=== PATIENT | male | born 2000 | race Caucasian/White ===

== ENCOUNTER 2019-01-17 07:09 | Inpatient (IN) | payer BC ==
[2019-01-17] MEDS ORDERED: SODIUM CHLORIDE 1,000 ML IV STA ×2 (07:15→07:42)
[2019-01-17] MEDS ORDERED: ONDANSETRON 4 MG/2 ML VIAL IVPUSH ONE (07:16)
--- NOTE | 2019-01-17 07:16 | PDOC ---
History of Present Illness - General Chief Complaint: Blood Sugar Problem Stated Complaint: HYPERGLYCEMIA Time Seen by Provider: 01/17/19 07:13 - History of Present Illness Initial Comments: 01/17/19 08:07 18-year-old transgender female with a history of type 1 diabetes (diagnosed at age 1, on insulin pump), currently transitioning from male to female (on estradiol and spironolactone hormone therapy for 2 years) presents to the emergency department with elevated blood sugars at home and concern for diabetic ketoacidosis. Patient reports she has a very high basal rate, and regularly receives between 60 and 70 units of regular insulin per day. She reports that she noticed at about 6 PM yesterday her insulin pump was leaking insulin around the tubing for an unknown period of time. She attempted to cover her blood sugar at the time with regular insulin subcutaneously, but it was too late as she was already vomiting. She reports innumerable episodes of nonbloody nonbilious emesis since 6 PM yesterday. She feels very dehydrated. She denies any recent fevers or chills. She reports a non productive cough for 5 weeks that has been improving. This morning she checked her urine ketones at home and found them to be elevated trace to moderate, prompting her to come to the emergency department for further evaluation. Has had DKA twice before, as freshman in high school and at diagnosis. Otherwise, denies headache, dizziness , focal weakness or numbness, chest pain, shortness of breath, abdominal pain, diarrhea, lower extremity edema, urinary symptoms or rashes. Of note, pt's family (aunt) at the bedside currently unaware that pt is transitioning from male to female. Social: previous smoker, vaper, quit 3 mo ago. Denies drug use. Lives in [place] but is currently visiting family in [place] PMD: out of state Past History - Past Medical History Allergies/Adverse Reactions: Allergies Allergy/AdvReac Type Severity Reaction Status Date / Time No Known Allergies Allergy Verified 01/17/19 07:11 Home Medications: Ambulatory Orders Estradiol 0.1 mg .ROUTE DAILY 01/17/19 Insulin Aspart [Novolog] 1 dose SQ ASDIR 01/17/19 Insulin Glargine,Hum.rec.anlog [Lantus] 1 dose SQ ASDIR 01/17/19 Spironolactone 100 mg PO DAILY 01/17/19 Review of Systems - Review of Systems Comments:: 01/17/19 08:26 GENERAL/CONSTITUTIONAL: No fever or chills. No weakness. HEAD, EYES, EARS, NOSE AND THROAT: No change in vision. No ear pain or discharge. No sore throat. GASTROINTESTINAL: +nausea, vomiting, no diarrhea or constipation. GENITOURINARY: No dysuria, frequency, or change in urination. CARDIOVASCULAR: No chest pain or shortness of breath. RESPIRATORY: +cough, no wheezing, or hemoptysis. MUSCULOSKELETAL: No joint or muscle swelling or pain. No neck or back pain. SKIN: No rash NEUROLOGIC: No headache, vertigo, loss of consciousness, or change in strength/ sensation. ENDOCRINE: No increased thirst. No abnormal weight change. HEMATOLOGIC/LYMPHATIC: No anemia, easy bleeding, or history of blood clots. ALLERGIC/IMMUNOLOGIC: No hives or skin allergy. *Physical Exam - Physical Exam Comments: 01/17/19 08:28 GENERAL: Awake, alert, and fully oriented, in no acute distress EYES: PERRLA, EOMI, sclera anicteric, conjunctiva clear ENT: Oropharynx clear without exudates. Dry MM NECK: Normal ROM, supple, no lymphadenopathy, JVD, or masses LUNGS: Breath sounds equal, clear to auscultation bilaterally. No wheezes, and no crackles HEART: Tachycardic to 120s but regular, normal S1 and S2, no murmurs, rubs or gallops ABDOMEN: Soft, nontender, normoactive bowel sounds. No guarding, no rebound. No masses EXTREMITIES: Normal range of motion, no edema. No cords, erythema, or tenderness NEUROLOGICAL: Normal speech, cranial nerves intact, equal strength and sensation b/l SKIN: Warm, Dry, normal turgor, no rashes or lesions noted. Heart Score/ECG Review #1 01/17/19 08:32 Twelve-lead EKG was performed and reviewed by me. Sinus tachycardia, rate 122. Normal axis and intervals. No ST elevations or T wave inversions. ED Treatment Course - LABORATORY CBC & Chemistry Diagram: 01/17/19 07:58 01/17/19 07:58 - RADIOLOGY Radiology Studies Ordered: Category Date Time Status CHEST PA & LAT [RAD] Stat Radiology 01/17/19 07:14 Ordered Medical Decision Making - Critical Care Time Total Critical Care Time (minutes): 60 Critical Care Statement: The care of this patient involved high complexity decision making to prevent further life threatening deterioration of the patient 's condition and/or to evaluate & treat vital organ system(s) failure or risk of failure. - Medical Decision Making 01/17/19 08:00 18-year-old transgender female, type I diabetic presents the emergency department with elevated blood sugars at home after insulin pump malfunction. Patient appears dehydrated. Differential includes hyperglycemia versus diabetic ketoacidosis. Ordered for 2 L of normal saline while labs are pending. Unlikely infectious as patient has no fevers or chills, but will do infectious w/u. Has had a cough for 5 weeks but this has been improving. Otherwise denies infectious symptoms. 01/17/19 08:43 Patient with leukocytosis to 30, with left shift. Patient was covered empirically with Vanc/Zosyn. Blood cultures ordered. CXR thus far clear. UA pending. Blood sugar elevated to 540 with gap of 20 consistent with diabetic ketoacidosis. Potassium was 5.1. Mg/Phos wnl. As such insulin drip ordered, also ordered liter #3 of NS with 20 mEq of KCl to run at 250 cc/h. Remaining labs are pending, anticipate admission to ICU down at [facility]. 01/17/19 10:32 Pt admitted to [facility]/Dr. Daily Accepted to ICU by Dr. Suraj Knapp/Fahad Pt to be transferred down to [facility] ICU Case discussed in detail with admitting physician including history, physical exam and ancillary studies. Admitting physician has assumed care for the patient, will follow all pending diagnostics and will complete the evaluation and treatment. Discharge - Discharge Information Problems reviewed: Yes Clinical Impression/Diagnosis: DKA, type 1, Sepsis, Dehydration Condition: Stable - Follow up/Referral - Patient Discharge Instructions - Post Discharge Activity
[2019-01-17] MEDS ORDERED: ONDANSETRON 4 MG/2 ML VIAL ONE (07:59)
[2019-01-17 08:28] LABS: HEMATOCRIT 43.3 % (35.4-49); MEAN PLT VOLUME 10.6 fl (7.5-11.1); WHITE BLOOD COUNT 29.5 K/mm3 (4.0-10.8)
[2019-01-17 08:30] LABS: ALBUMIN 4.5 g/dl (3.4-5.0); BILIRUBIN,TOTAL 1.4 mg/dl (0.2-1); CREATININE 1.3 mg/dl (0.55-1.3); MAGNESIUM 1.8 mg/dL (1.8-2.4); POTASSIUM 5.1 mmol/L (3.5-5.1); TOT PROT 8.1 g/dl (6.4-8.2)
[2019-01-17 08:32] LABS: HEMOGLOBIN 14.4 GM/dl (11.7-16.9); MCH 29.9 pg (25.7-33.7); MCHC 33.3 g/dl (32.0-35.9); MEAN CELL VOLUME 89.6 fl (80-96); PLATELET COUNT 400 K/MM3 (134-434); RBC 4.82 M/mm3 (4.00-5.60); RDW 11.9 % (11.9-15.9)
[2019-01-17] MEDS ORDERED: VANCOMYCIN 1,000 MG in DEXTROSE 5%-WATER - 250 ML IVPB ONE (08:40)
[2019-01-17] MEDS ORDERED: PIPERACILLIN/TAZOB 4.5 GM 4.5 GM in DEXTROSE 5%-WATER - 100 ML IVPB ONE (08:40)
[2019-01-17] MEDS ORDERED: INSULIN REGULAR 100 UNITS in SODIUM CHLORIDE 99 ML IVPB SCH ×3 (08:45→14:45)
[2019-01-17] MEDS ORDERED: SODIUM CHLORIDE 0.9%/KCL 20 MEQ/1,000 ML INFUS.BAG IV SCH (08:45)
[2019-01-17] MEDS ORDERED: INSULIN (NOVOLOG) ASPART 100 UNITS/ML 10ML VIAL ONE (08:49)
[2019-01-17] MEDS ORDERED: VANCOMYCIN 1,000 MG VIAL (RESTRICTED TO ID ONLY) ONE (08:50)
[2019-01-17] MEDS ORDERED: PIPERACILLIN/TAZOBACTAM 4.5 GM VIAL IVPB ONE (08:50)
[2019-01-17 09:00] LABS: VENOUS PC02 30.9 mmHg (38-52); VENOUS PH 7.21 (7.31-7.41); VENOUS PO2 76.4 mmHg (28-48)
[2019-01-17 09:20] LABS: PHOSPHOROUS 4.9 mg/dL (2.5-4.9)
[2019-01-17] MEDS ORDERED: PATIENT'S OWN MEDICATION (NON-FORMULARY) (Spironolactone [Spironolactone] 100 MG) PO SCH (10:00)
[2019-01-17] MEDS ORDERED: ESTRADIOL 0.1 MG SCH (10:00)
--- NOTE | 2019-01-17 10:54 | EKG ---
Test Reason : Blood Pressure : / mmHG Vent. Rate : 122 BPM Atrial Rate : 122 BPM P-R Int : 140 ms QRS Dur : 088 ms QT Int : 324 ms P-R-T Axes : 058 049 034 degrees QTc Int : 461 ms SINUS TACHYCARDIA POSSIBLE LEFT ATRIAL ENLARGEMENT BORDERLINE ECG NO PREVIOUS ECGS AVAILABLE Confirmed by DARSHAN GARCIA, EVANGELINA ([id number]) on 01/17/2019 10:53:35 AM Referred By: MAYITO Confirmed By:EVANGELINA SEXTON MD
--- NOTE | 2019-01-17 11:46 | HP ---
CHIEF COMPLAINT: DKA PCP: Dr. Cameron Good, [facility] [email or web address] HISTORY OF PRESENT ILLNESS: 18 year-old transgender female with a history of Type 1 diabetes (diagnosed at age 1, on insulin pump), currently transitioning from male to female (on estradiol and spironolactone hormone therapy for 2 years) presents to the emergency department with elevated blood sugars at home and concern for diabetic ketoacidosis. Patient reports she has a very high basal rate, and regularly receives between 60 and 70 units of regular insulin per day. She reports that she noticed at about 6 PM yesterday her insulin pump was leaking insulin around the tubing for an unknown period of time. She attempted to cover her blood sugar at the time with regular insulin subcutaneously, but it was too late as she was already vomiting. She reports innumerable episodes of nonbloody nonbilious emesis since 6 PM yesterday. She feels very dehydrated. She denies any recent fevers or chills. She reports a non productive cough for 5 weeks that has been improving. This morning she checked her urine ketones at home and found them to be elevated trace to moderate, prompting her to come to the emergency department for further evaluation. Has had DKA twice before, as freshman in high school and at diagnosis. Otherwise, denies headache, dizziness , focal weakness or numbness, chest pain, shortness of breath, abdominal pain, diarrhea, lower extremity edema, urinary symptoms or rashes. Of note, pt's family (aunt) at the bedside unaware that pt is transitioning from male to female. ER course was notable for: (1) WBC 29.5, Glucose 541, lactic acid 4.3, anion gap 20 (2) beta hydroxybutyrate 59.4 (3) 4+ urine ketones Recent Travel: From [place] PAST MEDICAL HISTORY: Type I diabetes Gender transitioning PAST SURGICAL HISTORY: None reported Social History: lives in [place], visiting family in [place]; just graduated from [employer] Smoking: previous smoker, vaper, quit 3 months ago Alcohol: no Drugs: no Family history: Mother age 50 autoimmune disorder; father age 50 heart disease NOS; no biological siblings Allergies No Known Allergies Allergy (Verified 01/17/19 07:11) HOME MEDICATIONS: Home Medications Medication Instructions Recorded Estradiol 0.1 mg .ROUTE DAILY 01/17/19 Insulin Aspart [Novolog] 1 dose SQ ASDIR 01/17/19 Insulin Glargine,Hum.rec.anlog 1 dose SQ ASDIR 01/17/19 [Lantus] Spironolactone 100 mg PO DAILY 01/17/19 REVIEW OF SYSTEMS CONSTITUTIONAL: Absent: fever, chills, diaphoresis, generalized weakness, malaise, loss of appetite, weight change HEENT: Absent: rhinorrhea, nasal congestion, throat pain, throat swelling, difficulty swallowing, mouth swelling, ear pain, eye pain, visual changes CARDIOVASCULAR: Absent: chest pain, syncope, palpitations, irregular heart rate, lightheadedness , peripheral edema RESPIRATORY: Absent: cough, shortness of breath, dyspnea with exertion, orthopnea, wheezing, stridor, hemoptysis GASTROINTESTINAL: Absent: abdominal pain, abdominal distension, nausea, vomiting, diarrhea, constipation, melena, hematochezia GENITOURINARY: Absent: dysuria, frequency, urgency, hesitancy, hematuria, flank pain, genital pain MUSCULOSKELETAL: Absent: myalgia, arthralgia, joint swelling, back pain, neck pain SKIN: Absent: rash, itching, pallor HEMATOLOGIC/IMMUNOLOGIC: Absent: easy bleeding, easy bruising, lymphadenopathy, frequent infections ENDOCRINE: vomiting, malaise, thirst Absent: unexplained weight gain, unexplained weight loss, heat intolerance, cold intolerance NEUROLOGIC: Absent: headache, focal weakness or paresthesias, dizziness, unsteady gait, seizure, mental status changes, bladder or bowel incontinence PSYCHIATRIC: Absent: anxiety, depression, suicidal or homicidal ideation, hallucinations. PHYSICAL EXAMINATION Vital Signs - 24 hr 01/17/19 01/17/19 01/17/19 07:10 09:44 09:47 Temperature 97.8 F 97.8 F 98.8 F Pulse Rate 123 H Pulse Rate [ 125 H 121 H Left] Respiratory 20 20 20 Rate Blood Pressure 124/72 Blood Pressure 100/53 L 104/53 L [Right Arm] O2 Sat by Pulse 99 99 100 Oximetry (%) 01/17/19 11:42 Temperature 98.8 F Pulse Rate Pulse Rate [ 122 H Left] Respiratory 20 Rate Blood Pressure Blood Pressure 109/50 L [Right Arm] O2 Sat by Pulse 100 Oximetry (%) GENERAL: Awake, alert, and fully oriented, in no acute distress. HEAD: Normal with no signs of trauma. EYES: Pupils equal, round and reactive to light, extraocular movements intact, sclera anicteric, conjunctiva clear. No lid lag. EARS, NOSE, THROAT: Ears normal, nares patent, oropharynx clear without exudates. Moist mucous membranes. NECK: Normal range of motion, supple without lymphadenopathy, JVD, or masses. LUNGS: Breath sounds equal, clear to auscultation bilaterally. No wheezes, and no crackles. No accessory muscle use. HEART: Regular rate and rhythm, normal S1 and S2 without murmur, rub or gallop. ABDOMEN: Soft, nontender, not distended, normoactive bowel sounds, no guarding, no rebound, no masses. No hepatomegaly or splenomegaly. MUSCULOSKELETAL: Normal range of motion at all joints. No bony deformities or tenderness. No CVA tenderness. UPPER EXTREMITIES: 2+ pulses, warm, well-perfused. No cyanosis. No clubbing. No peripheral edema. LOWER EXTREMITIES: 2+ pulses, warm, well-perfused. No calf tenderness. No peripheral edema. NEUROLOGICAL: Cranial nerves II-XII intact. Normal speech. Normal gait. PSYCHIATRIC: Cooperative. Good eye contact. Appropriate mood and affect. SKIN: Warm, dry, normal turgor; insulin pump site lateral right thigh without s/ s of infection Laboratory Results - last 24 hr 01/17/19 01/17/19 01/17/19 07:50 07:50 07:58 WBC 29.5 H RBC 4.82 Hgb 14.4 Hct 43.3 MCV 89.6 MCH 29.9 MCHC 33.3 RDW 11.9 Plt Count 400 MPV 10.6 Absolute Neuts (auto) 26.8 Neutrophils % No Result Required. Neutrophils % (Manual) 90.0 H Lymphocytes % No Result Required. Lymphocytes % (Manual) 6.0 L Monocytes % (Manual) 3 L Eosinophils % (Manual) 1.0 VBG pH 7.21 L POC VBG pCO2 30.9 L POC VBG pO2 76.4 H VBG HCO3 11.9 L VBG O2 Sat (Phuong) 92.9 H VBG Base Excess -14.8 L Sodium Potassium Chloride Carbon Dioxide Anion Gap BUN Creatinine Est GFR (CKD-EPI)AfAm Est GFR (CKD-EPI)NonAf POC Glucometer Random Glucose Lactic Acid 4.3 H* Calcium Phosphorus Magnesium Total Bilirubin AST ALT Alkaline Phosphatase Total Protein Albumin Lipase Beta-Hydroxybutyrate Urine Color Urine Appearance Urine pH Urine Protein Urine Glucose (UA) Urine Ketones Urine Blood Urine Nitrite Urine Bilirubin Urine Urobilinogen Ur Leukocyte Esterase 01/17/19 01/17/19 01/17/19 07:58 07:58 07:58 WBC RBC Hgb Hct MCV MCH MCHC RDW Plt Count MPV Absolute Neuts (auto) Neutrophils % Neutrophils % (Manual) Lymphocytes % Lymphocytes % (Manual) Monocytes % (Manual) Eosinophils % (Manual) VBG pH POC VBG pCO2 POC VBG pO2 VBG HCO3 VBG O2 Sat (Phuong) VBG Base Excess Sodium 130 L Potassium 5.1 Chloride 98 Carbon Dioxide 12 L Anion Gap 20 H BUN 26.0 H Creatinine 1.3 Est GFR (CKD-EPI)AfAm 91.03 Est GFR (CKD-EPI)NonAf 78.55 POC Glucometer Random Glucose 541 H* Lactic Acid Calcium 10.0 Phosphorus 5.0 H 4.9 Magnesium 1.8 Cancelled Total Bilirubin 1.4 H AST 19 ALT 14 Alkaline Phosphatase 107 Total Protein 8.1 Albumin 4.5 Lipase 727 H Beta-Hydroxybutyrate Cancelled 59.4 H Urine Color Urine Appearance Urine pH Urine Protein Urine Glucose (UA) Urine Ketones Urine Blood Urine Nitrite Urine Bilirubin Urine Urobilinogen Ur Leukocyte Esterase 01/17/19 01/17/19 10:51 11:35 WBC RBC Hgb Hct MCV MCH MCHC RDW Plt Count MPV Absolute Neuts (auto) Neutrophils % Neutrophils % (Manual) Lymphocytes % Lymphocytes % (Manual) Monocytes % (Manual) Eosinophils % (Manual) VBG pH POC VBG pCO2 POC VBG pO2 VBG HCO3 VBG O2 Sat (Phuong) VBG Base Excess Sodium Potassium Chloride Carbon Dioxide Anion Gap BUN Creatinine Est GFR (CKD-EPI)AfAm Est GFR (CKD-EPI)NonAf POC Glucometer 301 Random Glucose Lactic Acid Calcium Phosphorus Magnesium Total Bilirubin AST ALT Alkaline Phosphatase Total Protein Albumin Lipase Beta-Hydroxybutyrate Urine Color Yellow Urine Appearance Clear Urine pH 5.0 Urine Protein Negative Urine Glucose (UA) 1+ Urine Ketones 4+ H Urine Blood Trace-intact Urine Nitrite Negative Urine Bilirubin Negative Urine Urobilinogen 0.2 Ur Leukocyte Esterase Negative ASSESSMENT/PLAN 18 year-old transgender female with a history of Type 1 diabetes (diagnosed at age 1, on insulin pump), currently transitioning from male to female, admitted for DKA after insulin pump malfunctioned. DKA --on insulin drip --NS+20K @ 250mL/hr running --cbc, cmp, Mg, lactic acid repeat at noon --transfer to ICU DVT prophylaxis: subq heparin Visit type - Emergency Visit Emergency Visit: Yes ED Registration Date: 01/17/19 Care time: The patient presented to the Emergency Department on the above date and was hospitalized for further evaluation of their emergent condition. - New Patient This patient is new to me today: Yes Date on this admission: 01/17/19 - Critical Care Critical Care patient: Yes Total Critical Care Time (in minutes): 45 Critical Care Statement: The care of this patient involved high complexity decision making to prevent further life threatening deterioration of the patient 's condition and/or to evaluate & treat vital organ system(s) failure or risk of failure.
[2019-01-17 11:58] LABS: EPITHELIAL CELLS FEW /hpf
[2019-01-17] MEDS: MUPIROCIN 2% TOPICAL OINTMENT FOR DECOLONIZATION NS SCH ×2 (12:45→23:04)
--- NOTE | 2019-01-17 13:07 | CONSULT ---
Consultation: REQUESTING PROVIDER: CONSULT REQUEST: ICU HISTORY OF PRESENT ILLNESS: 18 year-old transgender F w PMHx T1DM (on insulin pump), transitioning from [facility] (estradiol and spironolactone) presenting to [facility] with hyperglycemia. At 6p yesterday, noted insulin pump was leaking around insertion site for unknown period of time despite swapping parts. Subsequent non-bilious vomiting x6 overnight. Has non productive cough x5wks. Denies fever/chills, SOB, chest/AB pain, urinary/bowel movement changes. Pt's family (aunt) unaware that pt is transitioning from male to female. Pt requests to be called Delfin when alone and Edilberto when family in room. In the ED, WBC 29.5, BG 541, lactic acid 4.3, pH 7.21, anion gap 20, beta hydroxybutyrate 59.4 Started insulin drip, given 3L NS (last L w 20mEQ KCl), vanc/zosyn, zofran REVIEW OF SYSTEMS: CONSTITUTIONAL: Absent: fever, chills, diaphoresis, generalized weakness HEENT: Absent: rhinorrhea, nasal congestion, throat pain, ear pain, eye pain, visual changes CARDIOVASCULAR: Absent: chest pain, syncope, palpitations RESPIRATORY: + cough Absent: shortness of breath, wheezing, stridor, hemoptysis GASTROINTESTINAL: +nausea/vomiting Absent: abdominal pain, abdominal distension, diarrhea, constipation GENITOURINARY: Absent: dysuria, frequency, urgency, hesitancy MUSCULOSKELETAL: Absent: myalgia, arthralgia, back pain SKIN: Absent: rash, itching HEMATOLOGIC/IMMUNOLOGIC: Absent: easy bleeding, easy bruising ENDOCRINE: Absent: heat intolerance, cold intolerance NEUROLOGIC: Absent: headache, focal weakness or paresthesias, dizziness, seizure PSYCHIATRIC: Absent: anxiety, depression PHYSICAL EXAMINATION Vital Signs - 24 hr 01/17/19 01/17/19 01/17/19 07:10 09:44 09:47 Temperature 97.8 F 97.8 F 98.8 F Pulse Rate 123 H Pulse Rate [ 125 H 121 H Left] Respiratory 20 20 20 Rate Blood Pressure 124/72 Blood Pressure 100/53 L 104/53 L [Right Arm] O2 Sat by Pulse 99 99 100 Oximetry (%) 01/17/19 11:42 Temperature 98.8 F Pulse Rate Pulse Rate [ 122 H Left] Respiratory 20 Rate Blood Pressure Blood Pressure 109/50 L [Right Arm] O2 Sat by Pulse 100 Oximetry (%) GENERAL: Awake, alert, and fully oriented, in no acute distress. HEAD: Normal with no signs of trauma. LUNGS: Breath sounds equal, clear to auscultation bilaterally. No wheezes, and no crackles. No accessory muscle use. HEART: Regular rate and rhythm, normal S1 and S2 without murmur, rub or gallop. ABDOMEN: Soft, nontender, not distended, normoactive bowel sounds, no guarding, no rebound, no masses. No hepatomegaly or splenomegaly. EXTREMITIES: warm, well-perfused. Cap refill <2 seconds. No peripheral edema. NEUROLOGICAL: AOx3. Normal speech. Laboratory Results - last 24 hr 01/17/19 01/17/19 01/17/19 07:50 07:50 07:58 WBC 29.5 H RBC 4.82 Hgb 14.4 Hct 43.3 MCV 89.6 MCH 29.9 MCHC 33.3 RDW 11.9 Plt Count 400 MPV 10.6 Absolute Neuts (auto) 26.8 Neutrophils % No Result Required. Neutrophils % (Manual) 90.0 H Lymphocytes % No Result Required. Lymphocytes % (Manual) 6.0 L Monocytes % (Manual) 3 L Eosinophils % (Manual) 1.0 VBG pH 7.21 L POC VBG pCO2 30.9 L POC VBG pO2 76.4 H VBG HCO3 11.9 L VBG O2 Sat (Phuong) 92.9 H VBG Base Excess -14.8 L Sodium Potassium Chloride Carbon Dioxide Anion Gap BUN Creatinine Est GFR (CKD-EPI)AfAm Est GFR (CKD-EPI)NonAf POC Glucometer Random Glucose Lactic Acid 4.3 H* Calcium Phosphorus Magnesium Total Bilirubin AST ALT Alkaline Phosphatase Total Protein Albumin Lipase Beta-Hydroxybutyrate Urine Color Urine Appearance Urine pH Urine Protein Urine Glucose (UA) Urine Ketones Urine Blood Urine Nitrite Urine Bilirubin Urine Urobilinogen Ur Leukocyte Esterase Urine RBC Urine WBC Ur Transition Epith Cell 01/17/19 01/17/19 01/17/19 07:58 07:58 07:58 WBC RBC Hgb Hct MCV MCH MCHC RDW Plt Count MPV Absolute Neuts (auto) Neutrophils % Neutrophils % (Manual) Lymphocytes % Lymphocytes % (Manual) Monocytes % (Manual) Eosinophils % (Manual) VBG pH POC VBG pCO2 POC VBG pO2 VBG HCO3 VBG O2 Sat (Phuong) VBG Base Excess Sodium 130 L Potassium 5.1 Chloride 98 Carbon Dioxide 12 L Anion Gap 20 H BUN 26.0 H Creatinine 1.3 Est GFR (CKD-EPI)AfAm 91.03 Est GFR (CKD-EPI)NonAf 78.55 POC Glucometer Random Glucose 541 H* Lactic Acid Calcium 10.0 Phosphorus 5.0 H 4.9 Magnesium 1.8 Cancelled Total Bilirubin 1.4 H AST 19 ALT 14 Alkaline Phosphatase 107 Total Protein 8.1 Albumin 4.5 Lipase 727 H Beta-Hydroxybutyrate Cancelled 59.4 H Urine Color Urine Appearance Urine pH Urine Protein Urine Glucose (UA) Urine Ketones Urine Blood Urine Nitrite Urine Bilirubin Urine Urobilinogen Ur Leukocyte Esterase Urine RBC Urine WBC Ur Transition Epith Cell 01/17/19 01/17/19 01/17/19 10:51 11:35 12:49 WBC RBC Hgb Hct MCV MCH MCHC RDW Plt Count MPV Absolute Neuts (auto) Neutrophils % Neutrophils % (Manual) Lymphocytes % Lymphocytes % (Manual) Monocytes % (Manual) Eosinophils % (Manual) VBG pH POC VBG pCO2 POC VBG pO2 VBG HCO3 VBG O2 Sat (Phuong) VBG Base Excess Sodium Potassium Chloride Carbon Dioxide Anion Gap BUN Creatinine Est GFR (CKD-EPI)AfAm Est GFR (CKD-EPI)NonAf POC Glucometer 301 198 Random Glucose Lactic Acid Calcium Phosphorus Magnesium Total Bilirubin AST ALT Alkaline Phosphatase Total Protein Albumin Lipase Beta-Hydroxybutyrate Urine Color Yellow Urine Appearance Clear Urine pH 5.0 Urine Protein Negative Urine Glucose (UA) 1+ Urine Ketones 4+ H Urine Blood Trace-intact Urine Nitrite Negative Urine Bilirubin Negative Urine Urobilinogen 0.2 Ur Leukocyte Esterase Negative Urine RBC 2-5 Urine WBC 0-2 Ur Transition Epith Cell Few Active Medications Generic Name Dose Route Start Last Admin Trade Name Freq PRN Reason Stop Dose Admin Chlorhexidine Gluconate 1 applic 01/17/19 22:00 Hibiclens For Decolonization - TP HS KEVIN Heparin Sodium (Porcine) 5,000 unit 01/17/19 14:00 Heparin - SQ TID KEVIN Potassium Chloride/Sodium Chloride 20 meq in 1,000 mls @ 250 mls/hr 01/17/19 08:45 01/17/19 08:50 Ns+20 Meq Kcl - IV 250 mls/hr ASDIR KEVIN Administration Insulin Human Regular 100 100 mls @ 7.71 mls/hr 01/17/19 08:45 01/17/19 09:20 units/ Sodium Chloride IVPB 0.1 units/kg/hr TITR KEVIN 7.71 mls/hr Administration Protocol 0.1 UNITS/KG/HR Mupirocin 1 applic 01/17/19 10:00 Bactroban Ointment (For Decolonization) - NS 01/22/19 09:59 BID KEVIN ASSESSMENT/PLAN: 18 year-old transgender F w PMHx T1DM (on insulin pump), transitioning from [facility] (estradiol and spironolactone) transferred from [facility] for DKA. Endo - DKA, hx T1DM, gender transition - transitioned insulin drip to ISS, BGM after gap closed - holding spironolactone while pressures labile - appreciated endo recs Cards - DVT ppx Pulm - CXR 01/18 shows clear lungs Heme - no active issues GI - diabetic diet - no evidence of UTI - stopped fluids - I/O ID - leukocytosis WBC 29 likely d/t stress - given vanc/zosyn in ED - pending blood/urine cx PPX - heparin - no GI ppx FEN - no fluids - hypoNa - diabetic diet Dispo: ICU Visit type - Emergency Visit Emergency Visit: Yes ED Registration Date: 01/17/19 Care time: The patient presented to the Emergency Department on the above date and was hospitalized for further evaluation of their emergent condition. - New Patient This patient is new to me today: Yes Date on this admission: 01/17/19 - Critical Care Critical Care patient: Yes Total Critical Care Time (in minutes): 37 Critical Care Statement: The care of this patient involved high complexity decision making to prevent further life threatening deterioration of the patient 's condition and/or to evaluate & treat vital organ system(s) failure or risk of failure. ATTENDING PHYSICIAN STATEMENT I saw and evaluated the patient. I reviewed the resident's note and discussed the case with the resident. I agree with the resident's findings and plan as documented. SUBJECTIVE: OBJECTIVE: ASSESSMENT AND PLAN:
--- NOTE | 2019-01-17 14:00 | HOSP ---
Subjective - Review of Symptoms Subjective: Patient is a 18 y/o transgender female with a history of type 1 diabetes (on insulin pump) who is admitted to the ICU for DKA. Patient currently reports she is hungry and the pain has subsided. She has only urinated once so far. No other complaints. Physical Examination Vital Signs: Vital Signs Temperature 98.7 F 01/17/19 12:45 Pulse Rate 115 H 01/17/19 12:45 Respiratory Rate 20 01/17/19 12:45 Blood Pressure 107/56 L 01/17/19 12:45 O2 Sat by Pulse Oximetry (%) 100 01/17/19 11:42 Findings/Remarks: General: awake, alert, no acute distress Heart: RRR Lungs: CTAL Abdomen, soft, non tender, normal bowel sounds heard Extremities: no pitting edema Skin: no rashes or ecchymoses noted Labs: CBC, BMP 01/17/19 07:58 01/17/19 07:58 Hospitalist Encounter Assessment: #DKA - currently on insulin drip - monitor BMP q4h - glucose < 250, D5 @ 100 - monitor potassium closely - beta hydroxybuterate: 59.4 #gender reassingment - will hold spironolactone 100 while pressures labile - Estradiol .1 mg daily, patient currently wearing a patch that lasts her a few days - prozac 80 mg daily #DVT ppx - heaprin TID DIspo: monitor in the ICU until gap closes and sugars stable Patients family unaware of transition. prefers Luke when Family is present, goes by Delfin if patient is alone Visit type - Emergency Visit Emergency Visit: No - New Patient This patient is new to me today: Yes Date on this admission: 01/18/19 - Critical Care Critical Care patient: No
[2019-01-17] MEDS: HEPARIN NA (PORCINE) 5,000 UNITS/ML 1ML VIAL SQ SCH ×2 (14:12→23:04)
[2019-01-17] MEDS ORDERED: DEXTROSE 5%-0.45% SALINE 1,000 ML IV SCH (14:15)
[2019-01-17 15:44] LABS: BLOOD UREA NITROGEN 17.4 mg/dL (7-18); CALCIUM 8.9 mg/dL (8.5-10.1); MAGNESIUM 2.1 mg/dL (1.8-2.4); PHOSPHOROUS 1.8 mg/dL (2.5-4.9); POTASSIUM 4.5 mmol/L (3.5-5.1)
[2019-01-17] MEDS ORDERED: NAPH,MB-DB/K PH,MBDB POWDER PACKET PO ONE (18:23)
--- NOTE | 2019-01-17 20:17 | CONSULT ---
Consult Consult Specialty:: ENDOCRINE Referred by:: CHANDLER MUÑOZ RESIDENT PHYSICIAN Reason for Consultation:: DM1/DKA - History of Present Illness Chief Complaint: LABILE BLOOD SUGARS STARTED WITH VOMITING AND WEAKNESS History of Present Illness: 18 year-old transgender female with a history of Type 1 diabetes (diagnosed at age 1, on insulin pump), currently transitioning from male to female (on estradiol and spironolactone hormone therapy for 2 years) presented to the emergency department with elevated blood sugars at home noted insulin pump malfunctioning, was not able to correct the problem with injections,started feeling nauseated and vomiting several times.was unable to keep food or liquid down.denies fever chills,chest pain or cough. - Alcohol/Substance Use Hx Alcohol Use: No - Smoking History Smoking history: Never smoked Have you smoked in the past 12 months: No Home Medications - Allergies Allergies/Adverse Reactions: Allergies Allergy/AdvReac Type Severity Reaction Status Date / Time No Known Allergies Allergy Verified 01/17/19 07:11 - Home Medications Home Medications: Ambulatory Orders Estradiol 0.1 mg .ROUTE DAILY 01/17/19 Insulin Aspart [Novolog] 1 dose SQ ASDIR 01/17/19 Insulin Glargine,Hum.rec.anlog [Lantus] 1 dose SQ ASDIR 01/17/19 Spironolactone 100 mg PO DAILY 01/17/19 Review of Systems - Review of Systems Constitutional: reports: Lethargy, Weakness Eyes: reports: No Symptoms HENT: reports: No Symptoms Neck: reports: No Symptoms Cardiovascular: reports: No Symptoms Respiratory: reports: No Symptoms Gastrointestinal: reports: Bloating Genitourinary: reports: No Symptoms Neurological: reports: No Symptoms Physical Exam Vital Signs: Vital Signs Temperature 98.0 F 01/17/19 16:00 Pulse Rate 102 H 01/17/19 16:00 Respiratory Rate 14 01/17/19 16:00 Blood Pressure 96/48 L 01/17/19 16:00 O2 Sat by Pulse Oximetry (%) 100 01/17/19 11:42 Constitutional: Yes: Calm Eyes: Yes: EOM Intact HENT: Yes: Normocephalic Neck: Yes: Trachea Midline Cardiovascular: Yes: Regular Rate and Rhythm Respiratory: Yes: CTA Bilaterally Gastrointestinal: Yes: Normal Bowel Sounds ...Rectal Exam: Yes: Deferred Renal/: Yes: WNL Breast(s): Yes: WNL Musculoskeletal: Yes: WNL Extremities: Yes: WNL Edema: No Neurological: Yes: Alert, Oriented Labs: CBC, BMP 01/17/19 07:58 01/17/19 14:37 Problem List - Problems (1) DKA, type 1 Problems reviewed: Yes Code(s): E10.10 - TYPE 1 DIABETES MELLITUS WITH KETOACIDOSIS WITHOUT COMA (2) Dehydration Problems reviewed: Yes Code(s): E86.0 - DEHYDRATION (3) Sepsis Problems reviewed: Yes Code(s): A41.9 - SEPSIS, UNSPECIFIED ORGANISM Assessment/Plan Current Active Problems DKA, type 1 (Acute) Dehydration (Acute) Sepsis (Acute) Abnormal Lab Results 01/17/19 01/17/19 01/17/19 07:50 07:50 07:58 WBC 29.5 H Neutrophils % (Manual) 90.0 H Lymphocytes % (Manual) 6.0 L Monocytes % (Manual) 3 L VBG pH 7.21 L POC VBG pCO2 30.9 L POC VBG pO2 76.4 H VBG HCO3 11.9 L VBG O2 Sat (Phuong) 92.9 H VBG Base Excess -14.8 L Sodium Chloride Carbon Dioxide Anion Gap BUN Random Glucose Lactic Acid 4.3 H* Phosphorus Total Bilirubin Lipase Beta-Hydroxybutyrate Urine Ketones 01/17/19 01/17/19 01/17/19 07:58 07:58 07:58 WBC Neutrophils % (Manual) Lymphocytes % (Manual) Monocytes % (Manual) VBG pH POC VBG pCO2 POC VBG pO2 VBG HCO3 VBG O2 Sat (Phuong) VBG Base Excess Sodium 130 L Chloride Carbon Dioxide 12 L Anion Gap 20 H BUN 26.0 H Random Glucose 541 H* Lactic Acid Phosphorus 5.0 H Total Bilirubin 1.4 H Lipase 727 H Beta-Hydroxybutyrate 59.4 H Urine Ketones 01/17/19 01/17/19 11:35 14:37 WBC Neutrophils % (Manual) Lymphocytes % (Manual) Monocytes % (Manual) VBG pH POC VBG pCO2 POC VBG pO2 VBG HCO3 VBG O2 Sat (Phuong) VBG Base Excess Sodium Chloride 114 H Carbon Dioxide Anion Gap 5 L BUN Random Glucose 115 H Lactic Acid Phosphorus 1.8 L Total Bilirubin Lipase Beta-Hydroxybutyrate Urine Ketones 4+ H Laboratory Results - last 24 hr 01/17/19 01/17/19 01/17/19 07:50 07:50 07:58 WBC 29.5 H RBC 4.82 Hgb 14.4 Hct 43.3 MCV 89.6 MCH 29.9 MCHC 33.3 RDW 11.9 Plt Count 400 MPV 10.6 Absolute Neuts (auto) 26.8 Neutrophils % No Result Required. Neutrophils % (Manual) 90.0 H Lymphocytes % No Result Required. Lymphocytes % (Manual) 6.0 L Monocytes % (Manual) 3 L Eosinophils % (Manual) 1.0 VBG pH 7.21 L POC VBG pCO2 30.9 L POC VBG pO2 76.4 H VBG HCO3 11.9 L VBG O2 Sat (Phuong) 92.9 H VBG Base Excess -14.8 L Sodium Potassium Chloride Carbon Dioxide Anion Gap BUN Creatinine Est GFR (CKD-EPI)AfAm Est GFR (CKD-EPI)NonAf POC Glucometer Random Glucose Lactic Acid 4.3 H* Calcium Phosphorus Magnesium Total Bilirubin AST ALT Alkaline Phosphatase Total Protein Albumin Lipase Beta-Hydroxybutyrate Urine Color Urine Appearance Urine pH Urine Protein Urine Glucose (UA) Urine Ketones Urine Blood Urine Nitrite Urine Bilirubin Urine Urobilinogen Ur Leukocyte Esterase Urine RBC Urine WBC Ur Transition Epith Cell 01/17/19 01/17/19 01/17/19 07:58 07:58 07:58 WBC RBC Hgb Hct MCV MCH MCHC RDW Plt Count MPV Absolute Neuts (auto) Neutrophils % Neutrophils % (Manual) Lymphocytes % Lymphocytes % (Manual) Monocytes % (Manual) Eosinophils % (Manual) VBG pH POC VBG pCO2 POC VBG pO2 VBG HCO3 VBG O2 Sat (Phuong) VBG Base Excess Sodium 130 L Potassium 5.1 Chloride 98 Carbon Dioxide 12 L Anion Gap 20 H BUN 26.0 H Creatinine 1.3 Est GFR (CKD-EPI)AfAm 91.03 Est GFR (CKD-EPI)NonAf 78.55 POC Glucometer Random Glucose 541 H* Lactic Acid Calcium 10.0 Phosphorus 5.0 H 4.9 Magnesium 1.8 Cancelled Total Bilirubin 1.4 H AST 19 ALT 14 Alkaline Phosphatase 107 Total Protein 8.1 Albumin 4.5 Lipase 727 H Beta-Hydroxybutyrate Cancelled 59.4 H Urine Color Urine Appearance Urine pH Urine Protein Urine Glucose (UA) Urine Ketones Urine Blood Urine Nitrite Urine Bilirubin Urine Urobilinogen Ur Leukocyte Esterase Urine RBC Urine WBC Ur Transition Epith Cell 01/17/19 01/17/19 01/17/19 10:51 11:35 12:00 WBC RBC Hgb Hct MCV MCH MCHC RDW Plt Count MPV Absolute Neuts (auto) Neutrophils % Neutrophils % (Manual) Lymphocytes % Lymphocytes % (Manual) Monocytes % (Manual) Eosinophils % (Manual) VBG pH POC VBG pCO2 POC VBG pO2 VBG HCO3 VBG O2 Sat (Phuong) VBG Base Excess Sodium Potassium Chloride Carbon Dioxide Anion Gap BUN Creatinine Est GFR (CKD-EPI)AfAm Est GFR (CKD-EPI)NonAf POC Glucometer 301 Random Glucose Lactic Acid 1.1 Calcium Phosphorus Magnesium Total Bilirubin AST ALT Alkaline Phosphatase Total Protein Albumin Lipase Beta-Hydroxybutyrate Urine Color Yellow Urine Appearance Clear Urine pH 5.0 Urine Protein Negative Urine Glucose (UA) 1+ Urine Ketones 4+ H Urine Blood Trace-intact Urine Nitrite Negative Urine Bilirubin Negative Urine Urobilinogen 0.2 Ur Leukocyte Esterase Negative Urine RBC 2-5 Urine WBC 0-2 Ur Transition Epith Cell Few 01/17/19 01/17/19 01/17/19 12:49 14:05 14:37 WBC RBC Hgb Hct MCV MCH MCHC RDW Plt Count MPV Absolute Neuts (auto) Neutrophils % Neutrophils % (Manual) Lymphocytes % Lymphocytes % (Manual) Monocytes % (Manual) Eosinophils % (Manual) VBG pH POC VBG pCO2 POC VBG pO2 VBG HCO3 VBG O2 Sat (Phuong) VBG Base Excess Sodium 139 Potassium 4.5 Chloride 114 H Carbon Dioxide 21 Anion Gap 5 L BUN 17.4 Creatinine 1.0 Est GFR (CKD-EPI)AfAm 125.02 Est GFR (CKD-EPI)NonAf 107.87 POC Glucometer 198 145 Random Glucose 115 H Lactic Acid Calcium 8.9 Phosphorus 1.8 L Magnesium 2.1 Total Bilirubin AST ALT Alkaline Phosphatase Total Protein Albumin Lipase Beta-Hydroxybutyrate Urine Color Urine Appearance Urine pH Urine Protein Urine Glucose (UA) Urine Ketones Urine Blood Urine Nitrite Urine Bilirubin Urine Urobilinogen Ur Leukocyte Esterase Urine RBC Urine WBC Ur Transition Epith Cell 01/17/19 01/17/19 16:17 17:43 WBC RBC Hgb Hct MCV MCH MCHC RDW Plt Count MPV Absolute Neuts (auto) Neutrophils % Neutrophils % (Manual) Lymphocytes % Lymphocytes % (Manual) Monocytes % (Manual) Eosinophils % (Manual) VBG pH POC VBG pCO2 POC VBG pO2 VBG HCO3 VBG O2 Sat (Phuong) VBG Base Excess Sodium Potassium Chloride Carbon Dioxide Anion Gap BUN Creatinine Est GFR (CKD-EPI)AfAm Est GFR (CKD-EPI)NonAf POC Glucometer 98 225 Random Glucose Lactic Acid Calcium Phosphorus Magnesium Total Bilirubin AST ALT Alkaline Phosphatase Total Protein Albumin Lipase Beta-Hydroxybutyrate Urine Color Urine Appearance Urine pH Urine Protein Urine Glucose (UA) Urine Ketones Urine Blood Urine Nitrite Urine Bilirubin Urine Urobilinogen Ur Leukocyte Esterase Urine RBC Urine WBC Ur Transition Epith Cell plan: bgm qid novolog insulin pump insulin pump with basal bolus per patient trained and capable using the device [id number] nutrition consult iv fluid.
[2019-01-17] MEDS ORDERED: INSULIN SLIDING SCALE (NOVOLOG) 1 VIAL SQ SCH ×2 (22:00)
[2019-01-17] MEDS ORDERED: CHLORHEXIDINE GLUCONATE 4% CLEANSER FOR DECOLONIZATION TP SCH (22:00)
[2019-01-17] MEDS ORDERED: INSULIN (LEVEMIR) 100 UNITS/ML UNITS SQ SCH (22:00)
[2019-01-18] MEDS: BENZOCAINE/MENTH/CETYLPYRD CL 1 EACH LOZENGE MM PRN ×2 (01:00→17:58)
[2019-01-18] MEDS: HEPARIN NA (PORCINE) 5,000 UNITS/ML 1ML VIAL SQ SCH ×3 (05:19→21:26)
[2019-01-18] MEDS ORDERED: PT OWN MED DRAWER 7, Y5N ONE ×4 (06:58→18:03)
[2019-01-18 07:05] LABS: BASO % 0.5 % (0-2.0); EOS % 0.2 % (0-4.5); HEMATOCRIT 40.2 % (35.4-49); HEMOGLOBIN 13.7 GM/dL (11.7-16.9); LYMPH % 10.4 % (8-40); MCHC 34.1 g/dl (32.0-35.9); MEAN PLT VOLUME 9.9 fl (7.5-11.1); MONO % 4.3 % (3.8-10.2); NEUT % 84.6 % (42.8-82.8); PLATELET COUNT 321 K/MM3 (134-434); RBC 4.57 M/mm3 (4.00-5.60); RDW 13.3 % (11.9-15.9); WHITE BLOOD COUNT 22.3 K/mm3 (4.0-10.0)
[2019-01-18 07:27] LABS: INR 1.19 (0.83-1.09); PROTHROMBIN TIME (PATIENT) 14.1 SEC (9.7-13.0)
[2019-01-18 07:30] LABS: ACTIVATED PTT 27.6 SECONDS (25.2-36.5)
[2019-01-18 07:51] LABS: ALBUMIN 3.8 g/dl (3.4-5.0); BILIRUBIN,TOTAL 0.6 mg/dL (0.2-1); BLOOD UREA NITROGEN 11.2 mg/dL (7-18); CALCIUM 9.5 mg/dL (8.5-10.1); CREATININE 0.8 mg/dL (0.55-1.3); MAGNESIUM 1.7 mg/dL (1.8-2.4); PHOSPHOROUS 2.6 mg/dL (2.5-4.9); POTASSIUM 3.8 mmol/L (3.5-5.1); TOT PROT 6.9 g/dl (6.4-8.2)
--- NOTE | 2019-01-18 08:43 | PN ---
Teaching Attending Note Name of Resident: Abe Triplett ATTENDING PHYSICIAN STATEMENT I saw and evaluated the patient. I reviewed the resident's note and discussed the case with the resident. I agree with the resident's findings and plan as documented. SUBJECTIVE: Patient is comfortable with no acute distress. Vital Signs Temperature 97.8 F 01/18/19 06:00 Pulse Rate 132 H 01/18/19 08:00 Respiratory Rate 16 01/18/19 08:00 Blood Pressure 115/68 01/18/19 08:00 O2 Sat by Pulse Oximetry (%) 100 01/17/19 22:00 GENERAL: The patient is awake, alert, and fully oriented, in no acute distress. HEAD: Normal with no signs of trauma. EYES: PERRL, extraocular movements intact, sclera anicteric, conjunctiva clear. ENT: Ears normal, oropharynx clear without exudates, moist mucous membranes. NECK: Trachea midline, full range of motion, supple. LUNGS: Breath sounds equal, CTA BL, no wheezes, no crackles, no accessory muscle use. HEART: Regular rate and rhythm, S1, S2 without murmur, rub or gallop. ABDOMEN: Soft, NT,ND, normoactive bowel sounds, no guarding, no rebound, no hepatosplenomegaly, no masses. EXTREMITIES: 2+ pulses, warm, well-perfused, no edema. NEUROLOGICAL: Cranial nerves II through XII grossly intact. Normal speech, gait not observed. PSYCH: Normal mood, normal affect. SKIN: Warm, dry, normal turgor, no rashes or lesions noted CBCD WBC 22.3 K/mm3 (4.0-10.0) H 01/18/19 05:52 RBC 4.57 M/mm3 (4.00-5.60) 01/18/19 05:52 Hgb 13.7 GM/dL (11.7-16.9) 01/18/19 05:52 Hct 40.2 % (35.4-49) 01/18/19 05:52 MCV 88.0 fl (80-96) 01/18/19 05:52 MCHC 34.1 g/dl (32.0-35.9) 01/18/19 05:52 RDW 13.3 % (11.9-15.9) 01/18/19 05:52 Plt Count 321 K/MM3 (134-434) 01/18/19 05:52 MPV 9.9 fl (7.5-11.1) 01/18/19 05:52 CMP Sodium 135 mmol/L (136-145) L 01/18/19 05:52 Potassium 3.8 mmol/L (3.5-5.1) 01/18/19 05:52 Chloride 106 mmol/L (98-107) 01/18/19 05:52 Carbon Dioxide 21 mmol/L (21-32) 01/18/19 05:52 Anion Gap 8 MMOL/L (8-16) 01/18/19 05:52 BUN 11.2 mg/dL (7-18) 01/18/19 05:52 Creatinine 0.8 mg/dL (0.55-1.3) 01/18/19 05:52 Random Glucose 102 mg/dL (74-106) 01/18/19 05:52 Calcium 9.5 mg/dL (8.5-10.1) 01/18/19 05:52 Total Bilirubin 0.6 mg/dL (0.2-1) 01/18/19 05:52 AST 6 U/L (15-37) L 01/18/19 05:52 ALT 12 U/L (13-61) L 01/18/19 05:52 Alkaline Phosphatase 103 U/L (45-117) 01/18/19 05:52 Total Protein 6.9 g/dl (6.4-8.2) 01/18/19 05:52 Albumin 3.8 g/dl (3.4-5.0) 01/18/19 05:52 Current Medications Generic Name Dose Route Start Last Admin Trade Name Freq PRN Reason Stop Dose Admin Benzocaine/Menthol 1 each 01/17/19 23:52 01/18/19 01:00 Cepacol Lozenge - MM 1 each PRN PRN Administration SORE THROAT Chlorhexidine Gluconate 1 applic 01/17/19 22:00 01/17/19 23:05 Hibiclens For Decolonization - TP 1 applic HS KEVIN Administration Heparin Sodium (Porcine) 5,000 unit 01/17/19 14:00 01/18/19 05:19 Heparin - SQ 5,000 unit TID KEVIN Administration Insulin Aspart 1 vial 01/17/19 22:00 Novolog Vial Sliding Scale - SQ ACHS [facility] Protocol Magnesium Sulfate 1 gm 01/18/19 09:00 Magnesium Sulfate IVPB 01/18/19 09:01 ONCE ONE Mupirocin 1 applic 01/17/19 10:00 01/17/19 23:04 Bactroban Ointment (For Decolonization) - NS 01/22/19 09:59 1 applic BID [facility] Administration Home Medications Medication Instructions Recorded Estradiol 0.1 mg .ROUTE DAILY 01/17/19 Insulin Aspart [Novolog] 1 dose SQ ASDIR 01/17/19 Insulin Glargine,Hum.rec.anlog 1 dose SQ ASDIR 01/17/19 [Lantus] Spironolactone 100 mg PO DAILY 01/17/19 CXR: negative Assessment and plan: Patient is a 18 y/o transgender female(currently transitioning from male to female) with a history of type 1 diabetes (on insulin pump) who is admitted to the ICU for DKA. #DKA: Gap is closed now, continue SS, insulin pump with basal bolus per patient trained and capable using the device #gender re-assingment: continue spironolactone 100mg, continue Estradiol .1 mg daily, patient currently wearing a patch that lasts her a few days #Hx of Depression: prozac 80 mg daily #DVT ppx: heaprin Patients family unaware of transition. prefers Edilberto when Family is present, goes by Delfin if patient is alone
[2019-01-18] MEDS ORDERED: MAGNESIUM SULF 50% (8.12 MEQ/2 ML-1 GM VIAL) IVPB ONE (09:00)
[2019-01-18] MEDS ORDERED: LACTATED RINGERS SOLUTION 1000 ML INFUS.BAG IV ONE (09:29)
[2019-01-18 09:44] LABS: PLATELET ESTIMATE NORMAL
[2019-01-18] MEDS ORDERED: FLUOXETINE HCL 80 MG PO SCH (10:00)
--- NOTE | 2019-01-18 11:28 | PN ---
Teaching Attending Note Name of Resident: Adele Johnson ATTENDING PHYSICIAN STATEMENT I saw and evaluated the patient. I reviewed the resident's note and discussed the case with the resident. I agree with the resident's findings and plan as documented. SUBJECTIVE: Pt seen and examined in the ICU. Off insulin gtt. Tolerating PO. Has been in sinus tachycardia. OBJECTIVE: Vital Signs Period Temp Pulse Resp BP Sys/Santa Pulse Ox Last 24 Hr 97.8 F-98.8 F 88-132 13-20 96-117/47-68 100-100 Intake & Output 01/15/19 01/16/19 01/17/19 01/18/19 23:59 23:59 23:59 23:59 Intake Total 300 300 Output Total 400 Balance -100 300 Weight 66.542 kg 67.16 kg Gen: NAD at rest Heart: RRR Lung: decreased breath sounds at the bases Abd: soft, nontender Ext: no edema CBC, BMP 01/18/19 05:52 01/18/19 05:52 Active Medications Benzocaine/Menthol (Cepacol Lozenge -) 1 each MM PRN PRN PRN Reason: SORE THROAT Last Admin: 01/18/19 01:00 Dose: 1 each Chlorhexidine Gluconate (Hibiclens For Decolonization -) 1 applic TP HS [facility] Last Admin: 01/17/19 23:05 Dose: 1 applic Heparin Sodium (Porcine) (Heparin -) 5,000 unit SQ TID [facility] Last Admin: 01/18/19 05:19 Dose: 5,000 unit Insulin Aspart (Novolog Vial Sliding Scale -) 1 vial SQ ACHS [facility]; Protocol Mupirocin (Bactroban Ointment (For Decolonization) -) 1 applic NS BID [facility] Stop: 01/22/19 09:59 Last Admin: 01/17/19 23:04 Dose: 1 applic ASSESSMENT AND PLAN: Diabetic Ketoacidosis resolved Lactic Acidosis Leukocytosis likely Leukemoid Reaction Sinus Tachycardia - continue insulin pump - monitor fingersticks - monitor off antibiotics - IVF - PO as tolerated - DVT prophylaxis - can monitor on floor or d/c home
--- NOTE | 2019-01-18 11:35 | PN ---
Physical Exam: SUBJECTIVE: Patient seen and examined this morning. Complaining of sore throat due to vomiting yesterday. Denies any chest pain, SOB, abd pain, or other concerns. States that she has fixed her insuline pump and believes it is working properly now. OBJECTIVE: Vital Signs Period Temp Pulse Resp BP Sys/Santa Pulse Ox Last 24 Hr 97.8 F-98.8 F 88-132 13-20 96-117/47-68 100-100 GENERAL: The patient is awake, alert, and fully oriented, in no acute distress. HEAD: Normal with no signs of trauma. EYES: PERRL, extraocular movements intact, sclera anicteric, conjunctiva clear. No ptosis. ENT: dry mucous membanres. oropharynx clear without exudates NECK: Trachea midline, full range of motion, supple. LUNGS: Breath sounds equal, clear to auscultation bilaterally, no wheezes, no crackles, no accessory muscle use. HEART: Tachycardic, regular rhythm, S1, S2 without murmur, rub or gallop. ABDOMEN: Soft, nontender, nondistended, normoactive bowel sounds, no guarding, no rebound EXTREMITIES: 2+ pulses, warm, well-perfused, no edema. NEUROLOGICAL: Normal speech, gait not observed. PSYCH: Normal mood, normal affect. SKIN: Warm, dry, normal turgor, no rashes or lesions noted Laboratory Results - last 24 hr 01/17/19 01/17/19 01/17/19 11:35 12:00 12:49 WBC RBC Hgb Hct MCV MCH MCHC RDW Plt Count MPV Absolute Neuts (auto) Neutrophils % Neutrophils % (Manual) Band Neutrophils % Lymphocytes % Lymphocytes % (Manual) Monocytes % Monocytes % (Manual) Eosinophils % Eosinophils % (Manual) Basophils % Basophils % (Manual) Myelocytes % (Man) Promyelocytes % (Man) Blast Cells % (Manual) Nucleated RBC % Metamyelocytes Platelet Estimate PT with INR INR PTT (Actin FS) Sodium Potassium Chloride Carbon Dioxide Anion Gap BUN Creatinine Est GFR (CKD-EPI)AfAm Est GFR (CKD-EPI)NonAf POC Glucometer 198 Random Glucose Hemoglobin A1c % Lactic Acid 1.1 Calcium Phosphorus Magnesium Total Bilirubin AST ALT Alkaline Phosphatase Total Protein Albumin Lipase Urine Color Yellow Urine Appearance Clear Urine pH 5.0 Urine Protein Negative Urine Glucose (UA) 1+ Urine Ketones 4+ H Urine Blood Trace-intact Urine Nitrite Negative Urine Bilirubin Negative Urine Urobilinogen 0.2 Ur Leukocyte Esterase Negative Urine RBC 2-5 Urine WBC 0-2 Ur Transition Epith Cell Few 01/17/19 01/17/19 01/17/19 14:05 14:37 16:17 WBC RBC Hgb Hct MCV MCH MCHC RDW Plt Count MPV Absolute Neuts (auto) Neutrophils % Neutrophils % (Manual) Band Neutrophils % Lymphocytes % Lymphocytes % (Manual) Monocytes % Monocytes % (Manual) Eosinophils % Eosinophils % (Manual) Basophils % Basophils % (Manual) Myelocytes % (Man) Promyelocytes % (Man) Blast Cells % (Manual) Nucleated RBC % Metamyelocytes Platelet Estimate PT with INR INR PTT (Actin FS) Sodium 139 Potassium 4.5 Chloride 114 H Carbon Dioxide 21 Anion Gap 5 L BUN 17.4 Creatinine 1.0 Est GFR (CKD-EPI)AfAm 125.02 Est GFR (CKD-EPI)NonAf 107.87 POC Glucometer 145 98 Random Glucose 115 H Hemoglobin A1c % Lactic Acid Calcium 8.9 Phosphorus 1.8 L Magnesium 2.1 Total Bilirubin AST ALT Alkaline Phosphatase Total Protein Albumin Lipase Urine Color Urine Appearance Urine pH Urine Protein Urine Glucose (UA) Urine Ketones Urine Blood Urine Nitrite Urine Bilirubin Urine Urobilinogen Ur Leukocyte Esterase Urine RBC Urine WBC Ur Transition Epith Cell 01/17/19 01/17/19 01/18/19 17:43 22:23 05:48 WBC RBC Hgb Hct MCV MCH MCHC RDW Plt Count MPV Absolute Neuts (auto) Neutrophils % Neutrophils % (Manual) Band Neutrophils % Lymphocytes % Lymphocytes % (Manual) Monocytes % Monocytes % (Manual) Eosinophils % Eosinophils % (Manual) Basophils % Basophils % (Manual) Myelocytes % (Man) Promyelocytes % (Man) Blast Cells % (Manual) Nucleated RBC % Metamyelocytes Platelet Estimate PT with INR INR PTT (Actin FS) Sodium Potassium Chloride Carbon Dioxide Anion Gap BUN Creatinine Est GFR (CKD-EPI)AfAm Est GFR (CKD-EPI)NonAf POC Glucometer 225 406 130 Random Glucose Hemoglobin A1c % Lactic Acid Calcium Phosphorus Magnesium Total Bilirubin AST ALT Alkaline Phosphatase Total Protein Albumin Lipase Urine Color Urine Appearance Urine pH Urine Protein Urine Glucose (UA) Urine Ketones Urine Blood Urine Nitrite Urine Bilirubin Urine Urobilinogen Ur Leukocyte Esterase Urine RBC Urine WBC Ur Transition Epith Cell 1101/18/19 01/18/19 05:52 05:52 05:52 WBC 22.3 H RBC 4.57 Hgb 13.7 Hct 40.2 MCV 88.0 MCH 30.0 MCHC 34.1 RDW 13.3 Plt Count 321 MPV 9.9 Absolute Neuts (auto) 18.8 H Neutrophils % 84.6 H Neutrophils % (Manual) 81.4 Band Neutrophils % 0.0 Lymphocytes % 10.4 Lymphocytes % (Manual) 11.7 Monocytes % 4.3 Monocytes % (Manual) 6 Eosinophils % 0.2 Eosinophils % (Manual) 1.0 Basophils % 0.5 Basophils % (Manual) 0.0 Myelocytes % (Man) 0 Promyelocytes % (Man) 0 Blast Cells % (Manual) 0 Nucleated RBC % 0 Metamyelocytes 0 Platelet Estimate Normal PT with INR 14.10 H INR 1.19 H PTT (Actin FS) 27.6 Sodium 135 L Potassium 3.8 Chloride 106 Carbon Dioxide 21 Anion Gap 8 BUN 11.2 Creatinine 0.8 Est GFR (CKD-EPI)AfAm 149.04 Est GFR (CKD-EPI)NonAf 128.60 POC Glucometer Random Glucose 102 Hemoglobin A1c % Lactic Acid Calcium 9.5 Phosphorus 2.6 Magnesium 1.7 L Total Bilirubin 0.6 AST 6 L ALT 12 L Alkaline Phosphatase 103 Total Protein 6.9 Albumin 3.8 Lipase 312 Urine Color Urine Appearance Urine pH Urine Protein Urine Glucose (UA) Urine Ketones Urine Blood Urine Nitrite Urine Bilirubin Urine Urobilinogen Ur Leukocyte Esterase Urine RBC Urine WBC Ur Transition Epith Cell 01/18/19 05:52 WBC RBC Hgb Hct MCV MCH MCHC RDW Plt Count MPV Absolute Neuts (auto) Neutrophils % Neutrophils % (Manual) Band Neutrophils % Lymphocytes % Lymphocytes % (Manual) Monocytes % Monocytes % (Manual) Eosinophils % Eosinophils % (Manual) Basophils % Basophils % (Manual) Myelocytes % (Man) Promyelocytes % (Man) Blast Cells % (Manual) Nucleated RBC % Metamyelocytes Platelet Estimate PT with INR INR PTT (Actin FS) Sodium Potassium Chloride Carbon Dioxide Anion Gap BUN Creatinine Est GFR (CKD-EPI)AfAm Est GFR (CKD-EPI)NonAf POC Glucometer Random Glucose Hemoglobin A1c % 9.1 H Lactic Acid Calcium Phosphorus Magnesium Total Bilirubin AST ALT Alkaline Phosphatase Total Protein Albumin Lipase Urine Color Urine Appearance Urine pH Urine Protein Urine Glucose (UA) Urine Ketones Urine Blood Urine Nitrite Urine Bilirubin Urine Urobilinogen Ur Leukocyte Esterase Urine RBC Urine WBC Ur Transition Epith Cell Active Medications Generic Name Dose Route Start Last Admin Trade Name Freq PRN Reason Stop Dose Admin Benzocaine/Menthol 1 each 01/17/19 23:52 01/18/19 01:00 Cepacol Lozenge - MM 1 each PRN PRN Administration SORE THROAT Chlorhexidine Gluconate 1 applic 01/17/19 22:00 01/17/19 23:05 Hibiclens For Decolonization - TP 1 applic HS KEVIN Administration Heparin Sodium (Porcine) 5,000 unit 01/17/19 14:00 01/18/19 05:19 Heparin - SQ 5,000 unit TID KEVIN Administration Insulin Aspart 1 vial 01/18/19 11:35 Novolog Vial Sliding Scale - SQ ACHS [facility] Protocol Mupirocin 1 applic 01/17/19 10:00 01/17/19 23:04 Bactroban Ointment (For Decolonization) - NS 01/22/19 09:59 1 applic BID KEVIN Administration ASSESSMENT/PLAN: 18 y/o transgender female with PMHx of T1DM (on insulin pump), transitioning from male to female (on estradiol and spironolactone), patient transferred from [facility] for DKA. #Neuro - AAOx3, monitor #Cardio - tachycardic. Bolus 1L LR. monitor #Endo - DKA, hx T1DM, gender transition - Insulin drip discontinued. Patient to use own insulin pump as per Dr. Shook. Diet started - HBA1c - 9.1 - appreciated endo recs - nutrition consult #Pulm - CXR 01/18 shows clear lungs #Heme - Hgb/Hct 13.7/40.2 #GI - diabetic diet # - no evidence of UTI - I/O #ID - Leukocytosis improving. 29 -> 22.3 - given vanc/zosyn in ED - Urine cx negative - Pre-arciniega blood cultures negative #PPX - heparin - no GI ppx #FEN - Bolus 1L LR x1 - low mag at 1.7, repleted - diabetic diet #Dispo - Stable for discharge home/transfer [facility] surg Visit type - Emergency Visit Emergency Visit: Yes ED Registration Date: 01/17/19 Care time: The patient presented to the Emergency Department on the above date and was hospitalized for further evaluation of their emergent condition. - New Patient This patient is new to me today: Yes Date on this admission: 01/18/19 - Critical Care Critical Care patient: Yes Total Critical Care Time (in minutes): 36 Critical Care Statement: The care of this patient involved high complexity decision making to prevent further life threatening deterioration of the patient 's condition and/or to evaluate & treat vital organ system(s) failure or risk of failure. ATTENDING PHYSICIAN STATEMENT I saw and evaluated the patient. I reviewed the resident's note and discussed the case with the resident. I agree with the resident's findings and plan as documented. SUBJECTIVE: OBJECTIVE: ASSESSMENT AND PLAN:
[2019-01-18] MEDS: MUPIROCIN 2% TOPICAL OINTMENT FOR DECOLONIZATION NS SCH (11:43)
--- NOTE | 2019-01-18 12:07 | PN ---
Physical Exam: SUBJECTIVE: Patient seen and examined in the morning. Patient was tachycardic in the morning on telemetry monitoring. No complaints of chest pain, shortness of breath, no abdominal pain, no nausea, no vomiting, no diarrhea. OBJECTIVE: Vital Signs Period Temp Pulse Resp BP Sys/Santa Pulse Ox Last 24 Hr 97.8 F-98.7 F 88-132 13-20 96-117/47-68 100-100 GENERAL: The patient is awake, alert, and fully oriented, in no acute distress. HEAD: Normal with no signs of trauma. NECK: Trachea midline, full range of motion, supple. LUNGS: Breath sounds equal, clear to auscultation bilaterally, no wheezes, no crackles. HEART: Tachycardic, S1, S2 without murmur, rub or gallop. ABDOMEN: Soft, nontender, nondistended, normoactive bowel sounds, no guarding, no rebound. EXTREMITIES: 2+ pulses, warm, well-perfused, no edema. NEUROLOGICAL: Cranial nerves II through XII grossly intact. Laboratory Results - last 24 hr 01/17/19 01/17/19 01/17/19 12:00 12:49 14:05 WBC RBC Hgb Hct MCV MCH MCHC RDW Plt Count MPV Absolute Neuts (auto) Neutrophils % Neutrophils % (Manual) Band Neutrophils % Lymphocytes % Lymphocytes % (Manual) Monocytes % Monocytes % (Manual) Eosinophils % Eosinophils % (Manual) Basophils % Basophils % (Manual) Myelocytes % (Man) Promyelocytes % (Man) Blast Cells % (Manual) Nucleated RBC % Metamyelocytes Platelet Estimate PT with INR INR PTT (Actin FS) Sodium Potassium Chloride Carbon Dioxide Anion Gap BUN Creatinine Est GFR (CKD-EPI)AfAm Est GFR (CKD-EPI)NonAf POC Glucometer 198 145 Random Glucose Hemoglobin A1c % Lactic Acid 1.1 Calcium Phosphorus Magnesium Total Bilirubin AST ALT Alkaline Phosphatase Total Protein Albumin Lipase 01/17/19 01/17/19 01/17/19 14:37 16:17 17:43 WBC RBC Hgb Hct MCV MCH MCHC RDW Plt Count MPV Absolute Neuts (auto) Neutrophils % Neutrophils % (Manual) Band Neutrophils % Lymphocytes % Lymphocytes % (Manual) Monocytes % Monocytes % (Manual) Eosinophils % Eosinophils % (Manual) Basophils % Basophils % (Manual) Myelocytes % (Man) Promyelocytes % (Man) Blast Cells % (Manual) Nucleated RBC % Metamyelocytes Platelet Estimate PT with INR INR PTT (Actin FS) Sodium 139 Potassium 4.5 Chloride 114 H Carbon Dioxide 21 Anion Gap 5 L BUN 17.4 Creatinine 1.0 Est GFR (CKD-EPI)AfAm 125.02 Est GFR (CKD-EPI)NonAf 107.87 POC Glucometer 98 225 Random Glucose 115 H Hemoglobin A1c % Lactic Acid Calcium 8.9 Phosphorus 1.8 L Magnesium 2.1 Total Bilirubin AST ALT Alkaline Phosphatase Total Protein Albumin Lipase 01/17/19 01/18/19 01/18/19 22:23 05:48 05:52 WBC 22.3 H RBC 4.57 Hgb 13.7 Hct 40.2 MCV 88.0 MCH 30.0 MCHC 34.1 RDW 13.3 Plt Count 321 MPV 9.9 Absolute Neuts (auto) 18.8 H Neutrophils % 84.6 H Neutrophils % (Manual) 81.4 Band Neutrophils % 0.0 Lymphocytes % 10.4 Lymphocytes % (Manual) 11.7 Monocytes % 4.3 Monocytes % (Manual) 6 Eosinophils % 0.2 Eosinophils % (Manual) 1.0 Basophils % 0.5 Basophils % (Manual) 0.0 Myelocytes % (Man) 0 Promyelocytes % (Man) 0 Blast Cells % (Manual) 0 Nucleated RBC % 0 Metamyelocytes 0 Platelet Estimate Normal PT with INR INR PTT (Actin FS) Sodium Potassium Chloride Carbon Dioxide Anion Gap BUN Creatinine Est GFR (CKD-EPI)AfAm Est GFR (CKD-EPI)NonAf POC Glucometer 406 130 Random Glucose Hemoglobin A1c % Lactic Acid Calcium Phosphorus Magnesium Total Bilirubin AST ALT Alkaline Phosphatase Total Protein Albumin Lipase 01/18/19 01/18/19 01/18/19 05:52 05:52 05:52 WBC RBC Hgb Hct MCV MCH MCHC RDW Plt Count MPV Absolute Neuts (auto) Neutrophils % Neutrophils % (Manual) Band Neutrophils % Lymphocytes % Lymphocytes % (Manual) Monocytes % Monocytes % (Manual) Eosinophils % Eosinophils % (Manual) Basophils % Basophils % (Manual) Myelocytes % (Man) Promyelocytes % (Man) Blast Cells % (Manual) Nucleated RBC % Metamyelocytes Platelet Estimate PT with INR 14.10 H INR 1.19 H PTT (Actin FS) 27.6 Sodium 135 L Potassium 3.8 Chloride 106 Carbon Dioxide 21 Anion Gap 8 BUN 11.2 Creatinine 0.8 Est GFR (CKD-EPI)AfAm 149.04 Est GFR (CKD-EPI)NonAf 128.60 POC Glucometer Random Glucose 102 Hemoglobin A1c % 9.1 H Lactic Acid Calcium 9.5 Phosphorus 2.6 Magnesium 1.7 L Total Bilirubin 0.6 AST 6 L ALT 12 L Alkaline Phosphatase 103 Total Protein 6.9 Albumin 3.8 Lipase 312 01/18/19 11:40 WBC RBC Hgb Hct MCV MCH MCHC RDW Plt Count MPV Absolute Neuts (auto) Neutrophils % Neutrophils % (Manual) Band Neutrophils % Lymphocytes % Lymphocytes % (Manual) Monocytes % Monocytes % (Manual) Eosinophils % Eosinophils % (Manual) Basophils % Basophils % (Manual) Myelocytes % (Man) Promyelocytes % (Man) Blast Cells % (Manual) Nucleated RBC % Metamyelocytes Platelet Estimate PT with INR INR PTT (Actin FS) Sodium Potassium Chloride Carbon Dioxide Anion Gap BUN Creatinine Est GFR (CKD-EPI)AfAm Est GFR (CKD-EPI)NonAf POC Glucometer 78 Random Glucose Hemoglobin A1c % Lactic Acid Calcium Phosphorus Magnesium Total Bilirubin AST ALT Alkaline Phosphatase Total Protein Albumin Lipase Active Medications Generic Name Dose Route Start Last Admin Trade Name Freq PRN Reason Stop Dose Admin Benzocaine/Menthol 1 each 01/17/19 23:52 01/18/19 01:00 Cepacol Lozenge - MM 1 each PRN PRN Administration SORE THROAT Chlorhexidine Gluconate 1 applic 01/17/19 22:00 01/17/19 23:05 Hibiclens For Decolonization - TP 1 applic HS KEVIN Administration Heparin Sodium (Porcine) 5,000 unit 01/17/19 14:00 01/18/19 05:19 Heparin - SQ 5,000 unit TID KEVIN Administration Insulin Aspart 1 vial 01/18/19 11:35 Novolog Vial Sliding Scale - SQ ACHS [facility] Protocol Mupirocin 1 applic 01/17/19 10:00 01/17/19 23:04 Bactroban Ointment (For Decolonization) - NS 01/22/19 09:59 1 applic BID KEVIN Administration ASSESSMENT/PLAN: 18 year old Transgender Female with Type 1 DM on insulin pump who presented to the hospital with DKA after noticing her insulin pump was malfunctioning. 1)DKA -Beta Hydroxybutarate was 59.4 upon admission -Glucose level is 115 today, continue monitoring Fingersticks -Continue insulin pump 2)Leukocytosis on admission -Likely reactive and is 22.3 down from 29.5 3)Sinus Tachycardia -Outpatient monitoring with cardiology 4) Gender reassignment -Holding spironolactone -Estradiol 0.1 mg Qdaily, on patch -Prozac 80 mg Qdaily DVT Prophylaxis Dispo: Transferred to med/surg floors. For discharge tomorrow. F: No IV Fluids E: Trend BMP N: Diabetic diet Visit type - Emergency Visit Emergency Visit: Yes ED Registration Date: 01/17/19 Care time: The patient presented to the Emergency Department on the above date and was hospitalized for further evaluation of their emergent condition. - New Patient This patient is new to me today: Yes Date on this admission: 01/18/19 - Critical Care Critical Care patient: No ATTENDING PHYSICIAN STATEMENT I saw and evaluated the patient. I reviewed the resident's note and discussed the case with the resident. I agree with the resident's findings and plan as documented. SUBJECTIVE: OBJECTIVE: ASSESSMENT AND PLAN:
[2019-01-18] MEDS: FLUoxetine HCL 20 MG CAPSULE (FP) PO SCH (16:53)
[2019-01-18] MEDS: INSULIN SLIDING SCALE (NOVOLOG) 1 VIAL SQ SCH ×2 (16:57→21:26)
[2019-01-18] MEDS ORDERED: CHLORHEXIDINE GLUCONATE 4% CLEANSER FOR DECOLONIZATION TP SCH (22:00)
[2019-01-18] MEDS ORDERED: MUPIROCIN 2% TOPICAL OINTMENT FOR DECOLONIZATION NS SCH (22:00)
[2019-01-19] MEDS: BENZOCAINE/MENTH/CETYLPYRD CL 1 EACH LOZENGE MM PRN (03:13)
[2019-01-19] MEDS ORDERED: ACETAMINOPHEN 325 MG TABLET (FP) PO ONE (05:53)
[2019-01-19] MEDS: HEPARIN NA (PORCINE) 5,000 UNITS/ML 1ML VIAL SQ SCH ×2 (06:34→13:59)
[2019-01-19] MEDS: INSULIN SLIDING SCALE (NOVOLOG) 1 VIAL SQ SCH ×3 (06:34→16:26)
[2019-01-19 08:37] LABS: BASO % 0.4 % (0-2.0); EOS % 0.2 % (0-4.5); HEMATOCRIT 38.5 % (35.4-49); LYMPH % 18.8 % (8-40); MCH 29.7 pg (25.7-33.7); MCHC 33.7 g/dl (32.0-35.9); MEAN CELL VOLUME 88.2 fl (80-96); MEAN PLT VOLUME 9.7 fl (7.5-11.1); MONO % 7.3 % (3.8-10.2); NEUT % 73.3 % (42.8-82.8); PLATELET COUNT 293 K/MM3 (134-434); RBC 4.37 M/mm3 (4.00-5.60); WHITE BLOOD COUNT 11.3 K/mm3 (4.0-10.0)
[2019-01-19] MEDS: FLUoxetine HCL 20 MG CAPSULE (FP) PO SCH (09:05)
[2019-01-19 09:07] LABS: CALCIUM 8.9 mg/dL (8.5-10.1); CREATININE 0.6 mg/dL (0.55-1.3); POTASSIUM 3.5 mmol/L (3.5-5.1)
[2019-01-19] MEDS ORDERED: SPIRONOLACTONE 25 MG TABLET (FP) PO SCH (10:00)
--- NOTE | 2019-01-19 11:40 | PN ---
Teaching Attending Note Name of Resident: Abe Triplett ATTENDING PHYSICIAN STATEMENT I saw and evaluated the patient. I reviewed the resident's note and discussed the case with the resident. I agree with the resident's findings and plan as documented. SUBJECTIVE: Patient is feeling better, wants to go back to [place]. Vital Signs Temperature 99.0 F 01/19/19 09:00 Pulse Rate 92 H 01/19/19 09:00 Respiratory Rate 20 01/19/19 09:00 Blood Pressure 119/81 01/19/19 09:00 O2 Sat by Pulse Oximetry (%) 100 01/18/19 21:00 GENERAL: The patient is awake, alert, and fully oriented, in no acute distress. HEAD: Normal with no signs of trauma. EYES: PERRL, extraocular movements intact, sclera anicteric, conjunctiva clear. ENT: Ears normal, oropharynx clear without exudates, moist mucous membranes. NECK: Trachea midline, full range of motion, supple. LUNGS: Breath sounds equal, clear to auscultation bilaterally, no wheezes, no crackles, no accessory muscle use. HEART: Regular rate and rhythm, S1, S2 positive, no murmur, rub or gallop. ABDOMEN: Soft, nontender, nondistended, normoactive bowel sounds, no guarding, no rebound, no hepatosplenomegaly, no masses. EXTREMITIES: 2+ pulses, warm, well-perfused, no edema. NEUROLOGICAL: Cranial nerves II through XII grossly intact. Normal speech, gait is stable PSYCH: Normal mood, normal affect. SKIN: Warm, dry, normal turgor, no rashes or lesions noted CBCD WBC 11.3 K/mm3 (4.0-10.0) H 01/19/19 07:50 RBC 4.37 M/mm3 (4.00-5.60) 01/19/19 07:50 Hgb 13.0 GM/dL (11.7-16.9) 01/19/19 07:50 Hct 38.5 % (35.4-49) 01/19/19 07:50 MCV 88.2 fl (80-96) 01/19/19 07:50 MCHC 33.7 g/dl (32.0-35.9) 01/19/19 07:50 RDW 13.0 % (11.9-15.9) 01/19/19 07:50 Plt Count 293 K/MM3 (134-434) 01/19/19 07:50 MPV 9.7 fl (7.5-11.1) 01/19/19 07:50 CMP Sodium 137 mmol/L (136-145) 01/19/19 07:50 Potassium 3.5 mmol/L (3.5-5.1) 01/19/19 07:50 Chloride 103 mmol/L (98-107) 01/19/19 07:50 Carbon Dioxide 27 mmol/L (21-32) 01/19/19 07:50 Anion Gap 7 MMOL/L (8-16) L 01/19/19 07:50 BUN 4.0 mg/dL (7-18) L 01/19/19 07:50 Creatinine 0.6 mg/dL (0.55-1.3) 01/19/19 07:50 Random Glucose 152 mg/dL (74-106) H 01/19/19 07:50 Calcium 8.9 mg/dL (8.5-10.1) 01/19/19 07:50 Total Bilirubin 0.6 mg/dL (0.2-1) 01/18/19 05:52 AST 6 U/L (15-37) L 01/18/19 05:52 ALT 12 U/L (13-61) L 01/18/19 05:52 Alkaline Phosphatase 103 U/L (45-117) 01/18/19 05:52 Total Protein 6.9 g/dl (6.4-8.2) 01/18/19 05:52 Albumin 3.8 g/dl (3.4-5.0) 01/18/19 05:52 Current Medications Generic Name Dose Route Start Last Admin Trade Name Freq PRN Reason Stop Dose Admin Benzocaine/Menthol 1 each 01/17/19 23:52 01/19/19 03:13 Cepacol Lozenge - MM 1 each PRN PRN Administration SORE THROAT Fluoxetine HCl 80 mg 01/18/19 15:30 01/19/19 09:05 Prozac - PO 80 mg DAILY KEVIN Administration Heparin Sodium (Porcine) 5,000 unit 01/18/19 14:00 01/19/19 06:34 Heparin - SQ 5,000 unit TID KEVIN Administration Insulin Aspart 1 vial 01/18/19 11:35 01/19/19 11:32 Novolog Vial Sliding Scale - SQ Not Given ACHS [facility] Protocol Spironolactone 100 mg 01/19/19 10:00 01/19/19 09:05 Aldactone - PO 100 mg DAILY [facility] Administration Home Medications Medication Instructions Recorded Estradiol 0.1 mg .ROUTE DAILY 01/17/19 Spironolactone 100 mg PO DAILY 01/17/19 Fluoxetine HCl [Prozac] 80 mg PO DAILY 01/18/19 Insulin (Novolog) [Novolog -] 1 unit SQ ASDIR 01/18/19 CXR: negative Assessment and plan: Patient is a 18 y/o transgender female(currently transitioning from male to female) with a history of type 1 diabetes (on insulin pump) who is admitted to the ICU for DKA. #DKA: Gap is closed now, with insulin pump with basal bolus per patient trained and capable using the device, will dc the patient , will go back to [place] #gender reassingment: continue spironolactone 100mg, continue Estradiol 0.1 mg daily, patient currently wearing a patch that lasts her a few days #Hx of Depression: prozac 80 mg daily #DVT ppx: heaprin Patients family unaware of transition. prefers [facility] when Family is present, goes by [facility] if patient is alone dc patient home.
--- NOTE | 2019-01-19 12:15 | PN ---
Progress Note, Physician Chief Complaint: comfortable no complaint,tolerating diet well - Current Medication List Current Medications: Active Medications Benzocaine/Menthol (Cepacol Lozenge -) 1 each MM PRN PRN PRN Reason: SORE THROAT Last Admin: 01/19/19 03:13 Dose: 1 each Fluoxetine HCl (Prozac -) 80 mg PO DAILY [facility] Last Admin: 01/19/19 09:05 Dose: 80 mg Heparin Sodium (Porcine) (Heparin -) 5,000 unit SQ TID [facility] Last Admin: 01/19/19 06:34 Dose: 5,000 unit Insulin Aspart (Novolog Vial Sliding Scale -) 1 vial SQ ACHS [facility]; Protocol Last Admin: 01/19/19 11:32 Dose: Not Given Spironolactone (Aldactone -) 100 mg PO DAILY [facility] Last Admin: 01/19/19 09:05 Dose: 100 mg - Objective Vital Signs: Vital Signs Temperature 99.0 F 01/19/19 09:00 Pulse Rate 92 H 01/19/19 09:00 Respiratory Rate 20 01/19/19 09:00 Blood Pressure 119/81 01/19/19 09:00 O2 Sat by Pulse Oximetry (%) 100 01/18/19 21:00 Constitutional: Yes: Calm Eyes: Yes: EOM Intact HENT: Yes: Normocephalic Neck: Yes: Trachea Midline Cardiovascular: Yes: Regular Rate and Rhythm Respiratory: Yes: CTA Bilaterally Gastrointestinal: Yes: Normal Bowel Sounds Musculoskeletal: Yes: WNL Extremities: Yes: WNL Neurological: Yes: Alert, Oriented Labs: CBC, BMP 01/19/19 07:50 01/19/19 07:50 INR, PTT INR 1.19 (0.83-1.09) H 01/18/19 05:52 Problem List - Problems (1) DKA, type 1 Problems reviewed: Yes Code(s): E10.10 - TYPE 1 DIABETES MELLITUS WITH KETOACIDOSIS WITHOUT COMA (2) Dehydration Code(s): E86.0 - DEHYDRATION Assessment/Plan dm type 1 sp dka Abnormal Lab Results 01/19/19 01/19/19 07:50 07:50 WBC 11.3 H Absolute Neuts (auto) 8.3 H Anion Gap 7 L BUN 4.0 L Random Glucose 152 H Laboratory Results - last 24 hr 01/18/19 01/18/19 01/19/19 16:55 21:25 03:43 WBC RBC Hgb Hct MCV MCH MCHC RDW Plt Count MPV Absolute Neuts (auto) Neutrophils % Lymphocytes % Monocytes % Eosinophils % Basophils % Nucleated RBC % Sodium Potassium Chloride Carbon Dioxide Anion Gap BUN Creatinine Est GFR (CKD-EPI)AfAm Est GFR (CKD-EPI)NonAf POC Glucometer 109 116 49 Random Glucose Calcium 01/19/19 01/19/19 01/19/19 06:30 07:50 07:50 WBC 11.3 H RBC 4.37 Hgb 13.0 Hct 38.5 MCV 88.2 MCH 29.7 MCHC 33.7 RDW 13.0 Plt Count 293 MPV 9.7 Absolute Neuts (auto) 8.3 H Neutrophils % 73.3 Lymphocytes % 18.8 D Monocytes % 7.3 Eosinophils % 0.2 Basophils % 0.4 Nucleated RBC % 0 Sodium 137 Potassium 3.5 Chloride 103 Carbon Dioxide 27 Anion Gap 7 L BUN 4.0 L Creatinine 0.6 Est GFR (CKD-EPI)AfAm 167.75 Est GFR (CKD-EPI)NonAf 144.74 POC Glucometer 187 Random Glucose 152 H Calcium 8.9 01/19/19 11:30 WBC RBC Hgb Hct MCV MCH MCHC RDW Plt Count MPV Absolute Neuts (auto) Neutrophils % Lymphocytes % Monocytes % Eosinophils % Basophils % Nucleated RBC % Sodium Potassium Chloride Carbon Dioxide Anion Gap BUN Creatinine Est GFR (CKD-EPI)AfAm Est GFR (CKD-EPI)NonAf POC Glucometer 204 Random Glucose Calcium plan: bgm qid novolog via tandem pump using bolus basal program preset discharge home 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
[2019-01-19 12:39] VITALS: BMI 21.2
--- NOTE | 2019-01-19 12:57 | DS ---
Physical Exam: SUBJECTIVE: Patient seen and examined in the morning. No acute events overnight. No complaints of chest pain, no abdominal pain,no nausea, vomiting, diarrhea, fever, chills, cough. OBJECTIVE: Vital Signs Period Temp Pulse Resp BP Sys/Santa Pulse Ox Last 24 Hr 98.6 F-100.7 F 84-92 18-20 119-133/74-81 100 PHYSICAL EXAM GENERAL: The patient is awake, alert, and fully oriented, in no acute distress. HEAD: Normal with no signs of trauma. EYES: PERRL, extraocular movements intact, sclera anicteric, conjunctiva clear. LUNGS: Breath sounds equal, clear to auscultation bilaterally. HEART: Regular rate and rhythm, S1, S2 without murmur, rub or gallop. ABDOMEN: Soft, nontender, nondistended, normoactive bowel sounds. EXTREMITIES: 2+ pulses, warm, well-perfused, no edema. NEUROLOGICAL: Cranial nerves II through XII grossly intact. PSYCH: Normal mood, normal affect. LABS Laboratory Results - last 24 hr CBC, BMP 01/19/19 07:50 01/19/19 07:50 HOSPITAL COURSE: Date of Admission:01/17/19 Date of Discharge: 01/19/19 18 year old Transgender Female with Type 1 DM on insulin pump who presented to the hospital with DKA after noticing her insulin pump was malfunctioning. Patient was noted to have Beta-Hydroxybutarate level of 59.4 on admission. Blood sugar was 540 with a gap of 20. Patient was started on insulin drip and admitted to the ICU. Patient's gap closed and blood sugar returned to the 100's , and was transferred to medicine floors on 01/18/19. Lactic Acid was noted to be 4.0 and trended down to 1.1 with fluids.Patient was also noted to have leukocytosis with WBC of 29.3 with left shift, on admission with sore throat of 5 weeks. Patient was given one dose of vancomycin and zoysn in the Emergency Department, but antibiotics were not continued through hospital stay. WBC was down to 11 on day of discharge. Patient was discharged on her home medications and will be following up with her Farm Equipment Service Technician in [place] in 1 week. Relevant Imaging done this stay: Chest X-Ray: No evidence of pneumonia. Minutes to complete discharge: 35 Discharge Summary Problems reviewed: Yes Reason For Visit: DKA Condition: Improved - Instructions Diet, Activity, Other Instructions: You were admitted to the hospital for Diabetic Ketoacidosis, this means your diabetes was not well controlled. While you were here we treated you with insulin. You are now stable to go home. Please continue to use your insulin pump. If your sugars are uncontrolled you need to call your Farm Equipment Service Technician. Please make an appointment with your onion farmer in one week. Make an appointment with your primary care physician within one week. Resume all your home medications as prescribed. Return to the Emergency Room if you have nausea, vomiting, diarrhea, headache, chest pain, or shortness of breath. Referrals: Сергей Shook MD [Staff Physician] - 1 Week Disposition: HOME - Home Medications Comprehensive Discharge Medication List: Ambulatory Orders Estradiol 0.1 mg .ROUTE DAILY 01/17/19 Spironolactone 100 mg PO DAILY 01/17/19 Fluoxetine HCl [Prozac] 80 mg PO DAILY 01/18/19 Insulin (Novolog) [Novolog -] 1 unit SQ ASDIR 01/18/19 This patient is new to me today: Yes Date on this admission: 01/19/19 Emergency Visit: Yes ED Registration Date: 01/17/19 Care time: The patient presented to the Emergency Department on the above date and was hospitalized for further evaluation of their emergent condition. Critical Care patient: No - Discharge Referral Referred to [facility] No ATTENDING PHYSICIAN STATEMENT I saw and evaluated the patient. I reviewed the resident's note and discussed the case with the resident. I agree with the resident's findings and plan as documented. SUBJECTIVE: OBJECTIVE: ASSESSMENT AND PLAN:
[2019-01-19 14:09] VITALS: BP 129/76; PULSE 87; TEMP 99.9
== END 2019-01-19 16:28 | disposition home or self-care (01) | DRG 639 ==
LOC: FER 07:09 → JICU 12:40 → J6S 01-18 13:41
PROVIDERS: ADMIT Internal Medicine Pulmonary Disease; ATTEND Internal Medicine
DX: E10.10 Type 1 diabetes mellitus with ketoacidosis without coma (principal); Z79.4 Long term (current) use of insulin; E86.0 Dehydration; F32.9 Major depressive disorder, single episode, unspecified; D72.829 Elevated white blood cell count, unspecified; R00.0 Tachycardia, unspecified
CPT/HCPCS: 36415; 71046-TC-FY; 80048; 80053; 81003; 81015; 82010; 82803; 82962; 83036; 83605; 83690; 83735; 84100; 85025; 85610; 85730; 87040; 87086; 93005; 99285-25; J1644; J7030